=== PATIENT | male | born 1990 | race African-American/Black ===

== ENCOUNTER 2016-08-16 11:49 | Emergency (ER) | payer OTHER ==
[~2016-08-16] VITALS: Ht 170.2 cm; Wt 66.4 kg
[2016-08-16 15:52] VITALS: BP 132/87
== END 2016-08-16 16:51 | disposition left against medical advice (07) ==
LOC: EME 11:49
DX: T43.291A Poisoning by other antidepressants, accidental (unintentional), initial encounter (principal); R11.0 Nausea; F17.200 Nicotine dependence, unspecified, uncomplicated
CPT/HCPCS: 93005; 99281; 99284

== ENCOUNTER 2017-11-19 11:17 | Emergency (ER) | payer SELFPAY ==
[~2017-11-19] VITALS: Ht 170.2 cm; Wt 66.2 kg
[2017-11-19] MEDS ORDERED: MOTRIN800 MG PO (13:07)
[2017-11-19 13:29] VITALS: BP 121/73
== END 2017-11-19 13:29 | disposition home or self-care (01) ==
LOC: EME 11:17
DX: S60.021A Contusion of right index finger without damage to nail, initial encounter (principal); S63.610A Unspecified sprain of right index finger, initial encounter; W23.0XXA Caught, crushed, jammed, or pinched between moving objects, initial encounter; Y93.67 Activity, basketball; F17.200 Nicotine dependence, unspecified, uncomplicated
CPT/HCPCS: 73130; 99281; 99284